=== PATIENT | male | born 1990 | race Caucasian/White ===

== ENCOUNTER 2022-09-09 03:11 | Emergency (ER) | payer SELFPAY ==
[2022-09-09] VITALS (66 sets, daily range): BP systolic 92–121; BP diastolic 53–70; PULSE 86–122; RESP 5–24; TEMP 35.7–36.5; O2SAT 85–100; BMI 22.4
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
--- NOTE | 2022-09-09 03:24 | DI.CT.S_ITS ---
PROCEDURE: CT HEAD/BRAIN WO CON INDICATIONS: right arm weak, right hip pain, +cocaine, metha TECHNIQUE: Noncontrast 4.5 mm thick angled axial sections acquired from the foramen magnum to the vertex, with coronal and sagittal reformats. For radiation dose reduction, the following was used: automated exposure control, adjustment of mA and/or kV according to patient size. COMPARISON: None. FINDINGS: Image quality: Excellent. CSF spaces: Basal cisterns are patent. No extra-axial fluid collections. Ventricles are normal in size and shape. Brain: No midline shift. No intracranial masses or hemorrhage. [place]-white matter interface is normal. Skull and face: Calvarium and visualized facial bones are intact, without suspicious lesions. Sinuses: Visualized sinuses and mastoids are clear. IMPRESSION: CT head without acute intracranial abnormalities. No mass or mass effect visualized. No significant discrepancy with the [facility] shift lead radiology preliminary report. Dictated by: Rob Walker M.D. on 09/09/2022 at 7:22 Approved by: Rob Walker M.D. on 09/09/2022 at 7:23
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
--- NOTE | 2022-09-09 03:26 | DI.RAD.S_ITS ---
PROCEDURE: XR SHOULDER RT MIN 2V INDICATIONS: weak right arm, TECHNIQUE: 2 views of the shoulder were acquired. COMPARISON: None. FINDINGS: Bones: No fractures or dislocations. No suspicious bony lesions. Visualized ribs appear intact. Soft tissues: No suspicious soft tissue calcifications. IMPRESSION: Right shoulder without acute fracture or dislocation. If there are persistent symptoms or clinical suspicion for pathology, then repeat radiographs or advanced imaging (CT or MRI) may be considered for further evaluation. No significant discrepancy with the retail shift manager radiology preliminary report. Dictated by: Rob Walker M.D. on 09/09/2022 at 7:21 Approved by: Rob Walker M.D. on 09/09/2022 at 7:22
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
[2022-09-09 03:56] LABS: Add Manual Diff / Slide Review YES; Hematocrit 48.2 % (41-53); Hemoglobin 16.2 g/dL (13.5-17.5); Mean Corpuscular HGB Conc 33.6 % (30-36); Mean Corpuscular Hemoglobin 28.7 PG (26-34); Mean Corpuscular Volume 85.3 fL (80-100); Platelet Count 351 X10^3/uL (150-400); Red Blood Cell Count 5.65 X10^6/uL (4.5-5.9); Red Cell Distribution Width 13.6 % (11.6-14.8); White Blood Cell Count 27.4 X10^3/uL (4.5-11.0)
[2022-09-09 04:03] LABS: Alanine Aminotransferase 370 IU/L (<50); Albumin 4.6 g/dL (3.5-5.0); Albumin Globulin Ratio 1.5 (1.0-2.8); Alkaline Phosphatase 103 U/L (38-126); Aspartate Aminotransferase 418 IU/L (17-59); BUN Creatinine Ratio 11.4 (6-22); Bilirubin Total 0.4 mg/dL (0.2-1.3); Blood Urea Nitrogen 23 mg/dL (9-20); Calcium 8.5 mg/dL (8.4-10.2); Carbon Dioxide 23 mmol/L (22-32); Chloride 105 mmol/L (98-107); Estimated Glomerular Filt Rate 45 mL/min (>60); Ethanol (ETOH) < 10 mg/dL; Globulin 3.1 g/dL (1.7-4.1); Glucose 118 mg/dL (70-100); HEMOLYSIS 24 (0-50); Sodium 141 mmol/L (137-145); Total Protein 7.7 g/dL (6.3-8.2)
[2022-09-09 04:06] LABS: Lactate (Lactic Acid) 4.6 mmol/L (0.7-2.1); Potassium 6.1 mmol/L (3.4-5.1)
[2022-09-09 04:14] LABS: Troponin I 0.076 ng/mL (0.01-0.034)
--- NOTE | 2022-09-09 04:18 | DI.RAD.S_ITS ---
PROCEDURE: XR CHEST 1V INDICATIONS: hypoxia TECHNIQUE: One view of the chest was acquired. COMPARISON: [facility], , CHEST 2 VIEW, 01/09/2009, 15:35. FINDINGS: Surgical changes and devices: None. Lungs and pleura: There is interstitial prominence. No focal consolidation. No pleural effusions or pneumothorax. Mediastinum: Mediastinal contours appear normal. Heart size is normal. Bones and chest wall: No suspicious bony lesions. Overlying soft tissues appear unremarkable. IMPRESSION: No acute cardiopulmonary disease. No significant discrepancy with the human resources leader radiology preliminary report. Dictated by: Mckayla Caraballo M.D. on 09/09/2022 at 8:03 Approved by: Mckayla Caraballo M.D. on 09/09/2022 at 8:04
[2022-09-09 04:24] LABS: Creatine Kinase 8036 U/L (55-170)
[2022-09-09] MEDS: ONDANSETRON 4 MG/2 ML INJ (04:39)
[2022-09-09 04:40] LABS: CKMB % Relative Index 0.4 % (1.5-5.0)
[2022-09-09 04:41] LABS: Procalcitonin 4.25 ng/mL (<0.5)
[2022-09-09] MEDS: SODIUM CHLORIDE 0.9% 2,000 ML 2000 ML IV (04:46)
[2022-09-09] MEDS: DEXTROSE 50 % IN WATER 25 GM/50 ML SYRINGE IV (04:53)
[2022-09-09] MEDS: INSULIN REGULAR 100 UNIT/ML 3 ML VIAL IV (05:20)
[2022-09-09 05:22] LABS: INR 1.1 (0.9-1.3); Prothrombin Time 12.7 SECONDS (10.1-12.7)
[2022-09-09 05:25] LABS: PTT Partial Thromboplastin Tim 27 SECONDS (26-36)
[2022-09-09] MEDS: SODIUM BICARB 8.4% SYRINGE 50 MEQ IV (05:26)
[2022-09-09] MEDS: CALCIUM GLUCONATE 4.65 MEQ in SODIUM CHLORIDE 0.9% 50 ML 180 MEQ IV (05:27)
[2022-09-09] MEDS: PIPERACILLIN/TAZO 4.5 GM in SODIUM CHLORIDE 0.9% 100 ML IV (05:30)
[2022-09-09 05:32] LABS: D Dimer 3858 ng/ml (<500)
[2022-09-09] MEDS: SODIUM CHLORIDE 0.9% 1,000 ML 1000 ML IV (05:35)
--- NOTE | 2022-09-09 05:43 | DI.CT.S_ITS ---
PROCEDURE: CT CERVICAL SPINE WO CON INDICATIONS: right arm weak TECHNIQUE: Noncontrast 3 mm thick sections acquired from the skull base to the T4 level. Sagittal and coronal reformats were then constructed. For radiation dose reduction, the following was used: automated exposure control, adjustment of mA and/or kV according to patient size. COMPARISON: CR, CERVICAL SPINE 2 OR 3 VIEWS, 07/17/2010, 4:04. [facility], CT, CT ANGIO CHEST PE PROTOCOL, 09/09/2022, 5:51. [facility], CR, XR CHEST 1V, 09/09/2022, 4:55. FINDINGS: Image quality: Excellent. Bones: Loss of cervical lordosis. No fractures or dislocations. Visualized superior ribs are intact. Soft tissues: Prevertebral soft tissues are normal in thickness. No paravertebral hematomas. No apical pneumothoraces. Ground-glass opacities at lung apices bilaterally. Please see separate CT chest angiogram report. IMPRESSION: No cervical spine injuries. No significant discrepancy with the dye blender radiology preliminary report. Dictated by: Mckayla Caraballo M.D. on 09/09/2022 at 7:45 Approved by: Mckayla Caraballo M.D. on 09/09/2022 at 7:48
--- NOTE | 2022-09-09 05:43 | DI.CT.S_ITS ---
PROCEDURE: CT ANGIO CHEST PE PROTOCOL INDICATIONS: hypoxia TECHNIQUE: After the administration of intravenous contrast, 2 mm thick sections acquired from the pulmonary apices to the posterior costophrenic angles. 3-dimensional maximum intensity projection (MIP) coronal and sagittal reformats were then acquired through the thorax. For radiation dose reduction, the following was used: automated exposure control, adjustment of mA and/or kV according to patient size. COMPARISON: , CR, XR CHEST 1V, 09/09/2022, 4:55. FINDINGS: Image quality: Excellent. Pulmonary arteries: Pulmonary arteries are normal in size. There are filling defects involving the left upper lobe segmental and subsegmental artery consistent with pulmonary emboli intraluminal filling defects to suggest central pulmonary embolism. Lungs and pleura: Bilateral ground-glass infiltrates. No pleural effusions or pneumothorax. Central and peripheral airways are patent. Mediastinum: Heart size is normal, without pericardial effusion. There is a 1.6 x 3.6 cm soft tissue density in the anterior mediastinum, probably thymic tissue. No mediastinal or hilar adenopathy. Thoracic aorta is normal in caliber and enhancement. Esophagus is normal in caliber, without hiatal hernia. Bones and chest wall: No suspicious bony lesions. Ribs and thoracic spine appear intact throughout. Thyroid gland is normal. No axillary or supraclavicular adenopathy. Abdomen: Visualized upper abdominal solid organs appear normal in the early arterial phase of enhancement. IMPRESSION: 1. There are pulmonary emboli involving the left upper lobe segmental artery and subsegmental arteries. 2. Bilateral patchy ground-glass infiltrates compatible with pneumonia. 3. There is a 1.6 x 3.6 cm soft tissue density in anterior mediastinum, probably thymic tissue. This may be secondary to thymic hyperplasia or a thymoma. Consider follow-up CT in 3 months. No significant discrepancy with the weight shifter radiology preliminary report. Dictated by: Mckayla Caraballo M.D. on 09/09/2022 at 8:01 Approved by: Mckayla Caraballo M.D. on 09/09/2022 at 8:58
[2022-09-09 05:47] LABS: Reflexed Lactate in 2 Hours Y
[2022-09-09 06:20] LABS: Lactate 2HR (Lactic Acid Rflx) 1.8 mmol/L (0.7-2.1)
[2022-09-09 06:21] LABS: Alanine Aminotransferase 255 IU/L (<50); Albumin Globulin Ratio 1.3 (1.0-2.8); Alkaline Phosphatase 69 U/L (38-126); Aspartate Aminotransferase 330 IU/L (17-59); BUN Creatinine Ratio 14.6 (6-22); Bilirubin Total 0.3 mg/dL (0.2-1.3); Blood Urea Nitrogen 23 mg/dL (9-20); Carbon Dioxide 27 mmol/L (22-32); Chloride 110 mmol/L (98-107); Estimated Glomerular Filt Rate > 60 mL/min (>60); Globulin 2.4 g/dL (1.7-4.1); Glucose 113 mg/dL (70-100); HEMOLYSIS 21 (0-50); Potassium 4.7 mmol/L (3.4-5.1); Sodium 141 mmol/L (137-145); Total Protein 5.4 g/dL (6.3-8.2)
[2022-09-09 06:32] LABS: Troponin I 0.091 ng/mL (0.01-0.034)
[2022-09-09 06:51] LABS: Creatine Kinase 9690 U/L (55-170)
--- NOTE | 2022-09-09 07:28 | DI.ECHO.S_ITS ---
[facility] +---------+ : : [address] : [place] [address] : : : : [id number] : : : : Phone: [phone]+ Echocardiogram Report + + :Name: BRIAN DAVIES Study Date: 09/09/2022 Height: 74 in : :[facility] ReadingLocation: Weight: 175 lb: : Gender: Male BSA: 2.1 m2 : :: 1990 Age: 32 yrs BP: 95/56 mmHg: :Reason For Study: PULMONARY EMBOLISM : :Ordering Physician: MIHIR ZAMORA Performed By: LORELEI DUNBAR : :Referring: MIHIR ZAMORA : + + Interpretation Summary Sinus tachycardia with HR around 110 bpm. Normal LV size and wall thickness. Global hypokinesis. Ejection fraction estimated at 40-45%. No significant valvular abnormalities. Normal chamber sizes. Specifically, RV is not dilated. Unable to estimate PA systolic pressure due to lack of significant TR jet. No prior study available for comparison. Procedure: A two-dimensional transthoracic echocardiogram with color flow and Doppler was performed. The study quality was technically adequate. There is no prior echocardiogram noted for this patient. The patient was in a tachycardic rhythm during the exam. Left Ventricle: The left ventricle is normal in size and wall thickness. Left ventricular systolic function is mild to moderately reduced. The ejection fraction is estimated to be 40-45%. Right Ventricle: The right ventricle is normal in size and function. Atria: Both atria are normal in size. There is no Doppler evidence for an interatrial shunt. Mitral Valve: The mitral valve is normal in structure and function. There is no mitral regurgitation noted. Aortic Valve: The aortic valve is trileaflet. The aortic valve opens well. There is no aortic valve stenosis. No aortic regurgitation is present. Tricuspid Valve: The tricuspid valve is normal in structure and function. There is trace tricuspid regurgitation. Pulmonary artery pressures cannot be estimated because of the lack of a measurable TR jet velocity. Pulmonic Valve: The pulmonic valve leaflets are thin and pliable; valve motion is normal. There is mild to moderate pulmonic regurgitation. Great Vessels: The aortic root is normal size. The ascending aorta is normal in size. The IVC is of normal diameter and collapses less than 50% with a sniff. This suggests a right atrial pressure of 8 mm Hg. Pericardium/ Pleura There is no pericardial effusion. There is no pleural effusion. MMode/2D Measurements & Calculations LVIDd: 4.1 cm LVOT diam: 2.1 cm LVIDs: 3.2 cm Ao root diam: 3.1 cm FS: 22.2 % asc Aorta Diam: 2.8 cm EPSS: 2.0 cm IVSd: 0.86 cm LVPWd: 0.89 cm LV chicas. diameter/BSA (cm/m^2): 2.0 LV sys. diameter/BSA (cm/m^2): 1.5 LA A2 area: 13.2 cm2 RA long axis: 3.9 cm LA A4 area: 13.5 cm2 RA area: 12.0 cm2 LA length (vol): 4.3 cm RA vol: 31.6 ml LA vol: 35.4 ml RA : 15.4 ml/m2 LA vol index: 17.2 ml/m2 TAPSE: 1.7 cm Doppler Measurements & Calculations Ao V2 max: 109.2 cm/sec LVOT Max Camron: 92.4 cm/sec Ao V2 mean: 81.5 cm/sec LV V1 max P.4 mmHg Ao max P.8 mmHg LV V1 VTI: 13.3 cm Ao mean P.8 mmHg MELVINA(I,D): 3.2 cm2 Ao V2 VTI: 14.9 cm MELVINA(V,D): 3.0 cm2 sev ratio: 0.89 MELVINA indexed to BSA (cm^2/m^2): 1.6 MV E max camron: 48.1 cm/sec PA V2 max: 82.0 cm/sec MV A max camron: 64.0 cm/sec PA V2 mean: 54.0 cm/sec MV E/A: 0.75 PA mean P.4 mmHg Med Peak E' Camron: 10.6 cm/sec PA pr(Accel): 39.6 mmHg E/E' med: 4.5 Lat Peak E' Camron: 7.9 cm/sec E/E' lat: 6.1 E/e' average: 5.3 MV dec time: 0.15 sec SV(LVOT): 47.5 ml Electronically signed by: Mary Morgan M.D. on Reading Physician:09/09/2022 11:20 AM
[2022-09-09 07:44] LABS: Neutrophils Absolute Manual 24112 /uL (3000-5900); RBC Morphology Normal Morphology; Total Cells Counted 100
--- NOTE | 2022-09-09 08:04 | PC.NURSE ---
pt states he does not want to start heparin until he talks to
[2022-09-09] MEDS: HEPARIN 5,000 UNIT/ML VIAL 6400 UNIT IV (08:10)
[2022-09-09] MEDS: HEPARIN DRIP 25,000 UNIT/500 ML IV.SOLN 20 UNIT IV (08:11)
[2022-09-09] MEDS: VANCOMYCIN 1,500 MG/300 ML PIGGYBACK 200 MG IV (08:22)
[2022-09-09 08:39] LABS: Troponin I 0.128 ng/mL (0.01-0.034)
[2022-09-09 08:42] LABS: Ur Creatinine Normal (Normal); Ur Specific Gravity Normal (Normal); Urine pH Normal (Normal)
[2022-09-09 08:46] LABS: Urine Cocaine Positive (Negative); Urine Tetrahydrocannabinol Negative (Negative)
[2022-09-09 08:47] LABS: UR Morphine/Opiate cutoff 300 Negative (Negative); Urine Amphetamines Negative (Negative); Urine Barbiturates Negative (Negative); Urine Benzodiazepines Negative (Negative); Urine MDMA Positive (Negative); Urine Methadone Negative (Negative); Urine Methamphetamines Positive (Negative); Urine Oxycodone Negative (Negative); Urine Phencyclidine Negative (Negative); Urine Tricyclic Antidepressant Negative (Negative)
[2022-09-09 09:50] LABS: Appearance Urine UA CLEAR; Bilirubin Urine UA NEGATIVE (NEGATIVE); Color Urine UA YELLOW; Glucose Urine UA NEGATIVE (Negative); Ketones Urine UA NEGATIVE (NEGATIVE); Leukocyte Esterase Urine UA NEGATIVE (NEGATIVE); Nitrite Urine UA NEGATIVE (Negative); Occult Blood Urine UA 3+ (Negative); Protein Urine UA 1+ (Negative); Specific Gravity Urine UA 1.015 (1.000-1.035)
--- NOTE | 2022-09-09 10:03 | PC.NURSE ---
report from osteologist is that patient came in after waking up and is unable to move his right arm and has no feeling in it. osteologist nurse reports he used painful stimuli on pt with no response on right but response on left arm was appropriate. pt admits to doing drugs and drinking but woke up this morning with pain in his shoulder/hip that he was laying on. pt found to be apneic but oxygen levels respond well to deep breathing, he is on 5L NC. pt currently states he is feeling more sensations in his right arm but is not mentally ready to move it yet.
[2022-09-09 10:08] LABS: Bacteria Urine None Seen; Culture Indicated Urine Cult Not Indicated; Granular Casts Urine 1-5/LPF; Hyaline Casts Urine 1-5/LPF; RBC Urine 1-5/HPF (0-5/HPF); Squamous Epithelial Cell Urine 1-5 /HPF (0-5/HPF); WBC Urine 0-1/HPF (0-5/HPF)
[2022-09-09 10:13] LABS: COVID19 -Nasal RAPID Negative (Negative)
[2022-09-09] MEDS: PIPERACILLIN/TAZO 3.375 GM in SODIUM CHLORIDE 0.9% 100 ML IV ×2 (10:14→18:03)
[2022-09-09] MEDS: SODIUM CHLORIDE 0.9% 1,000 ML 150 ML IV (11:25)
--- NOTE | 2022-09-09 12:24 | PC.NURSE ---
oxygen via NC turned down to 3L. pt has been stats in the high 90s for over 60min with no reminders to deep breathe.
--- NOTE | 2022-09-09 13:11 | PC.NURSE ---
[facility] aware of pt.
[2022-09-09 14:29] LABS: Add Manual Diff / Slide Review NO; Basophils Absolute Auto 100 /uL (0-100); Basophils Percent Auto 0.6 % (0-2); Eosinophils Absolute Auto 0 /uL (0-450); Eosinophils Percent Auto 0.1 % (2-4); Hematocrit 41.6 % (41-53); Hemoglobin 13.6 g/dL (13.5-17.5); Lymphocytes Absolute Auto 3000 /uL (1100-4500); Lymphocytes Percent Auto 14.9 % (25-40); Mean Corpuscular HGB Conc 32.8 % (30-36); Mean Corpuscular Volume 85.3 fL (80-100); Monocytes Absolute Auto 1200 /uL (0-900); Monocytes Percent Auto 5.9 % (3-14); Neutrophils Absolute Auto 15700 /uL (1500-7000); Neutrophils Percent Auto 78.5 % (50-75); Platelet Count 271 X10^3/uL (150-400); Red Blood Cell Count 4.88 X10^6/uL (4.5-5.9); Red Cell Distribution Width 13.8 % (11.6-14.8)
[2022-09-09 14:42] LABS: BUN Creatinine Ratio 14.7 (6-22); Blood Urea Nitrogen 20 mg/dL (9-20); Calcium 7.5 mg/dL (8.4-10.2); Carbon Dioxide 28 mmol/L (22-32); Chloride 105 mmol/L (98-107); Estimated Glomerular Filt Rate > 60 mL/min (>60); Glucose 104 mg/dL (70-100); HEMOLYSIS < 15 (0-50); Potassium 4.1 mmol/L (3.4-5.1); Sodium 138 mmol/L (137-145)
[2022-09-09 14:54] LABS: Troponin I 0.113 ng/mL (0.01-0.034)
[2022-09-09 14:56] LABS: PTT Partial Thromboplastin Tim 141 SECONDS (26-36)
[2022-09-09 15:11] LABS: Creatine Kinase 19213 U/L (55-170)
[2022-09-09 15:31] LABS: CKMB % Relative Index 0.5 % (1.5-5.0)
--- NOTE | 2022-09-09 17:16 | PC.NURSE ---
Addendum entered by Solange Haley R.N. 09/09/22 17:24: on troponin being elevated, and what rhabdo is and the worries it presents to his kidneys. told pt we are taking care of him and making sure he does not get worse but he is not advised to leave at this time. we plan on having him for a couple of days before he can go home. also spoke with provider about pt being hungry, dinner order ordered and called into kitchen Original Note: spoke to patient about the plan of getting him a room. spoke to patient about his blood clot in his lungs, re-educating
[2022-09-09] MEDS: LORazepam 2 MG/ML INJ 1 MG IV (18:03)
== END 2022-09-09 19:35 | disposition short-term general hospital (02) ==
PROVIDERS: Emergency Medicine; Emergency Provider Emergency Medicine
DX: I26.99 Other pulmonary embolism without acute cor pulmonale (principal); M62.82 Rhabdomyolysis; N17.9 Acute kidney failure, unspecified; E87.5 Hyperkalemia; A41.9 Sepsis, unspecified organism; M25.511 Pain in right shoulder; Z20.822 Contact with and (suspected) exposure to COVID-19
CPT/HCPCS: 36415; 51798; 70450; 70496; 70498; 71045; 71275; 72125; 73030; 73502; 80048; 80053; 80305; 80320; 81001; 81003; 82550; 82553; 83605; 84145; 84484; 85007; 85025; 85379; 85610; 85730; 87040; 87635; 93005; 93306; 96365; 96366; 96367; 96368; 96375; 99285; 99291; C9803; J0612; J1644; J2060; J2405; J2543; Q9967

== ENCOUNTER 2023-02-24 22:30 | Inpatient (IN) | payer OTHER, MEDICAID, SELFPAY ==
[2023-02-24 22:32] VITALS: BP 128/71; PULSE 114; RESP 16; TEMP 36.9; O2SAT 100; BMI 23.1
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
--- NOTE | 2023-02-24 22:51 | DI.RAD.S_ITS ---
PROCEDURE: XR TIBIA FIBULA LT 2V INDICATIONS: swelling, calf pain, hx of blood clots TECHNIQUE: 2 views of the tibia and fibula were acquired. COMPARISON: None. FINDINGS: Bones: No fractures or dislocations. No suspicious bony lesions. Soft tissues: No suspicious soft tissue calcifications. IMPRESSION: No acute osseous abnormality. If symptoms persist, follow-up radiographs and/or CT or MRI may be helpful for further evaluation. Dictated by: John Cordova M.D. on 02/24/2023 at 23:53 Approved by: John Cordova M.D. on 02/24/2023 at 23:54
--- NOTE | 2023-02-24 22:51 | DI.US.S_ITS ---
PROCEDURE: US PERIPH VENOUS LOW EXTREM LT INDICATIONS: swelling, calf pain, hx of blood clots TECHNIQUE: Real-time imaging, as well as color and pulse Doppler interrogation, were performed of the lower extremity deep veins from the inguinal ligament to the popliteal fossa, with documentation of the visualized calf veins. COMPARISON: None. FINDINGS: The common femoral, femoral, popliteal, and the visualized calf veins are normally compressible, and free of intraluminal thrombus. Color and pulse Doppler demonstrate normal phasic intraluminal flow. There is normal augmentation response to distal compression maneuver. Incidental note of prominent left inguinal lymph nodes which are likely reactive in etiology. IMPRESSION: No findings of lower extremity deep venous thrombosis. Dictated by: Rob Walker M.D. on 02/24/2023 at 23:39 Approved by: Rob Walker M.D. on 02/24/2023 at 23:40
[2023-02-24 23:05] VITALS: PULSE 112
[2023-02-25] VITALS (20 sets, daily range): BP systolic 105–130; BP diastolic 44–69; PULSE 96–139; RESP 17–27; TEMP 36.5–39.4; O2SAT 96–100; BMI 23.1
[2023-02-25] MEDS: KETOROLAC 30 MG/ML VIAL 15 MG IV (02:10)
[2023-02-25 02:11] LABS: Add Manual Diff / Slide Review NO; Basophils Absolute Auto 100 /uL (0-100); Basophils Percent Auto 0.5 % (0-2); Eosinophils Absolute Auto 0 /uL (0-450); Eosinophils Percent Auto 0.2 % (2-4); Hematocrit 36.4 % (41-53); Hemoglobin 12.1 g/dL (13.5-17.5); Lymphocytes Absolute Auto 900 /uL (1100-4500); Lymphocytes Percent Auto 4.4 % (25-40); Mean Corpuscular HGB Conc 33.1 % (30-36); Mean Corpuscular Hemoglobin 27.8 PG (26-34); Monocytes Absolute Auto 900 /uL (0-900); Monocytes Percent Auto 4.4 % (3-14); Neutrophils Absolute Auto 17600 /uL (1500-7000); Neutrophils Percent Auto 90.5 % (50-75); Platelet Count 417 X10^3/uL (150-400); Red Blood Cell Count 4.34 X10^6/uL (4.5-5.9); Red Cell Distribution Width 13.8 % (11.6-14.8); White Blood Cell Count 19.4 X10^3/uL (4.5-11.0)
[2023-02-25] MEDS: VANCOMYCIN 1,500 MG/300 ML PIGGYBACK 200 MG IV (02:12)
[2023-02-25 02:18] LABS: Lactate (Lactic Acid) 1.3 mmol/L (0.7-2.1)
[2023-02-25 02:19] LABS: Alanine Aminotransferase 217 IU/L (<50); Albumin 3.8 g/dL (3.5-5.0); Albumin Globulin Ratio 0.8 (1.0-2.8); Alkaline Phosphatase 199 U/L (38-126); Aspartate Aminotransferase 197 IU/L (17-59); BUN Creatinine Ratio 14.1 (6-22); Bilirubin Total 0.6 mg/dL (0.2-1.3); Blood Urea Nitrogen 12 mg/dL (9-20); Calcium 9.4 mg/dL (8.4-10.2); Carbon Dioxide 28 mmol/L (22-32); Chloride 99 mmol/L (98-107); Creatine Kinase 46 U/L (55-170); Estimated Glomerular Filt Rate > 60 mL/min (>60); Globulin 4.7 g/dL (1.7-4.1); Glucose 129 mg/dL (70-100); HEMOLYSIS < 15 (0-50); Sodium 137 mmol/L (137-145); Total Protein 8.5 g/dL (6.3-8.2)
[2023-02-25 02:31] LABS: Troponin I < 0.012 ng/mL (0.01-0.034)
[2023-02-25 02:36] LABS: Procalcitonin 0.13 ng/mL (<0.5)
[2023-02-25] MEDS: ACETAMINOPHEN 325 MG TABLET 975 MG PO (02:57)
[2023-02-25] MEDS: SODIUM CHLORIDE 0.45% 1,000 ML 100 ML IV ×2 (04:59→15:28)
[2023-02-25] MEDS: IBUPROFEN 600 MG TABLET PO ×3 (05:53→23:01)
[2023-02-25 06:02] LABS: Add Manual Diff / Slide Review NO; Basophils Absolute Auto 100 /uL (0-100); Basophils Percent Auto 0.4 % (0-2); Eosinophils Absolute Auto 0 /uL (0-450); Eosinophils Percent Auto 0.2 % (2-4); Hematocrit 34.6 % (41-53); Hemoglobin 11.6 g/dL (13.5-17.5); Lymphocytes Absolute Auto 800 /uL (1100-4500); Mean Corpuscular HGB Conc 33.5 % (30-36); Mean Corpuscular Hemoglobin 28.1 PG (26-34); Mean Corpuscular Volume 83.8 fL (80-100); Monocytes Absolute Auto 800 /uL (0-900); Monocytes Percent Auto 4.1 % (3-14); Neutrophils Absolute Auto 18400 /uL (1500-7000); Neutrophils Percent Auto 91.3 % (50-75); Platelet Count 371 X10^3/uL (150-400); Red Blood Cell Count 4.13 X10^6/uL (4.5-5.9); Red Cell Distribution Width 13.7 % (11.6-14.8); White Blood Cell Count 20.2 X10^3/uL (4.5-11.0)
[2023-02-25 06:18] LABS: Alanine Aminotransferase 451 IU/L (<50); Albumin 3.1 g/dL (3.5-5.0); Albumin Globulin Ratio 0.8 (1.0-2.8); Alkaline Phosphatase 302 U/L (38-126); Aspartate Aminotransferase 589 IU/L (17-59); Bilirubin Total 0.6 mg/dL (0.2-1.3); Blood Urea Nitrogen 13 mg/dL (9-20); Calcium 8.5 mg/dL (8.4-10.2); Carbon Dioxide 27 mmol/L (22-32); Chloride 100 mmol/L (98-107); Estimated Glomerular Filt Rate > 60 mL/min (>60); Globulin 4.1 g/dL (1.7-4.1); Glucose 126 mg/dL (70-100); HEMOLYSIS < 15 (0-50); Potassium 3.4 mmol/L (3.4-5.1); Sodium 135 mmol/L (137-145); Total Protein 7.2 g/dL (6.3-8.2)
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
[2023-02-25 06:20] LABS: Hemoglobin A1C% w Est Avg Glu 5.9 % (4.0-6.0)
--- NOTE | 2023-02-25 08:04 | P.PN_ITS ---
Subjective Subjective Interval history: He is somewhat distant, keeping his eyes closed and reluctantly engaging. His laboratory testing includes a white blood count of 20.2 with a hemoglobin of 11.6 and a potassium of 3.4. His AST is 589 with an ALT of 451 an alk-phos of 302. Those labs will be repeated tomorrow. His blood sugars have been in the 200s so we are considering increasing his Lantus dose. His heart rate has been 137 at times. The leg looks better today. Exam Vital Signs (past 8 hours): - 02/25/23 02:03 02/25/23 02:30 02/25/23 02:30 Temperature Pulse Rate 132 H 135 H Respiratory Rate 23 17 Blood Pressure 115/56 L Pulse Oximetry 100 99 Oxygen Delivery Method Oxygen Flow Rate 02/25/23 02:40 02/25/23 02:50 02/25/23 02:57 Temperature 103 F H 102.9 F H 102.9 F H Pulse Rate Respiratory Rate Blood Pressure Pulse Oximetry Oxygen Delivery Method Oxygen Flow Rate 02/25/23 03:00 02/25/23 03:00 02/25/23 03:15 Temperature 103 F H Pulse Rate 136 H Respiratory Rate 24 Blood Pressure 115/58 L Pulse Oximetry 97 Oxygen Delivery Method Oxygen Flow Rate 02/25/23 03:30 02/25/23 03:30 02/25/23 04:00 Temperature 103 F H Pulse Rate 139 H Respiratory Rate 22 Blood Pressure 121/65 118/56 L Pulse Oximetry 98 Oxygen Delivery Method Oxygen Flow Rate 02/25/23 04:00 02/25/23 04:30 02/25/23 04:30 Temperature Pulse Rate 133 H 136 H Respiratory Rate 27 H 27 H Blood Pressure 130/64 Pulse Oximetry 98 Oxygen Delivery Method Oxygen Flow Rate 02/25/23 04:51 02/25/23 05:04 02/25/23 05:10 Temperature 103 F H 100.8 F H Pulse Rate 137 H Respiratory Rate 18 Blood Pressure 112/51 L Pulse Oximetry 97 97 Oxygen Delivery Method Room Air Oxygen Flow Rate 0 02/25/23 07:57 Temperature 99.2 F Pulse Rate Respiratory Rate Blood Pressure Pulse Oximetry Oxygen Delivery Method Oxygen Flow Rate Oxygen Delivery Method Room Air Oxygen Flow Rate 0 Narrative Exam Narrative: Distant, reluctantly engaging, keeping his eyes closed. Left leg 2+ edema warm and with areas of pinkness. There is also some areas of tenderness up to the knee. Heart is regular rate and rhythm without murmur Lungs are clear to auscultation bilaterally Objective Labs 02/25/23 05:45 02/25/23 05:45 Labs: Laboratory Results - last 24 hr 02/25/23 02/25/23 01:50 05:45 WBC 19.4 H 20.2 H RBC 4.34 L 4.13 L Hgb 12.1 L 11.6 L Hct 36.4 L 34.6 L MCV 84.0 83.8 MCH 27.8 28.1 MCHC 33.1 33.5 RDW 13.8 13.7 Plt Count 417 H 371 Neut % (Auto) 90.5 H 91.3 H Lymph % (Auto) 4.4 L 4.0 L [place] % (Auto) 4.4 4.1 Eos % (Auto) 0.2 L 0.2 L Baso % (Auto) 0.5 0.4 Neut # (Auto) 58475 H 04708 H Lymph # (Auto) 900 L 800 L [place] # (Auto) 900 800 Eos # (Auto) 0 0 Baso # (Auto) 100 100 Sodium 137 135 L Potassium 4.0 3.4 Chloride 99 100 Carbon Dioxide 28 27 BUN 12 13 Creatinine 0.85 0.93 Estimated GFR > 60 > 60 BUN/Creatinine Ratio 14.1 14.0 Glucose 129 H 126 H Hemoglobin A1c 5.9 Lactate 1.3 Calcium 9.4 8.5 Total Bilirubin 0.6 0.6 AST 197 H 589 H ALT 217 H 451 H Alkaline Phosphatase 199 H 302 H D Total Creatine Kinase 46 L Troponin I < 0.012 Total Protein 8.5 H 7.2 Albumin 3.8 3.1 L Globulin 4.7 H 4.1 Albumin/Globulin Ratio 0.8 L 0.8 L Procalcitonin 0.13 PFSH Social History household members: none Smoking Status: Current every day smoker alcohol intake: former Assessment & Plan Assessment & Plan narrative: Cellulitis of left leg: Plan Continue Vancomycin. pain meds, tylenol and IV narcotics ordered, The pt has not been on oral antibiotics for this in the past, expect short hospitalization. US of the leg was negative for DVT, repeating CMP due to elevated LFT's, probably due to meth abuse. Elevated liver enzymes, present on admission. Active. -02/25/2023 AST 589, ALT 451, alk-phos 302 -follow closely, expect to steadily fall with treatment, likely related to methamphetamine? -consider liver imaging and hepatitis-C testing Methamphetamine abuse -patient is somewhat disengaged and does not appear comfortable. Quality VTE Deep Vein Thrombosis/Pulmonary Embolism Present on Admission: No
[2023-02-25] MEDS: VANCOMYCIN 1,250 MG/250 ML PIGGYBACK 250 MG IV ×2 (10:11→17:45)
[2023-02-25] MEDS: POTASSIUM CHLORIDE 20 MEQ TAB 40 MEQ PO (10:11)
--- NOTE | 2023-02-25 13:55 | CM.DANOTE ---
Reviewed EMR and team rounds for medical status and anticipated d/c needs. ANATOMY AND PHYSIOLOGY INSTRUCTOR attempted several times to meet w/him for this assessment, however he was deeply sleeping and difficult to rouse. Observed RN also trying to engage w/him, he was accepting of some meds but indicated he did not want to interact w/staff, appeared adamantly against the Lovenox injection, but was open to oral potassium. Payor: None PCP: None Pt is a 32 year-old M who presented to ED after having worsening pain and swelling of his left lower extremity. He is homeless, has a hx of daily methamphetamine use (smoking, not injecting), and had a prior pulmonary emboli about a month ago, left AMA but did take about oral meds for about 30-days. He was admitted for left lower extremity cellulites, and was started on IV Vancomycin. US of leg was negative for PE, and is thought to be related to his methamphetamine use. This ANATOMY AND PHYSIOLOGY INSTRUCTOR did observe a friend visit him in the room, and his mother presented to the central nursing station inquiring about him. She stated if he knew I was here he would be angry. She is listed as a contact in the EMR, however no Auth to Discuss is on file. Per Hospitalist, his stay will most likely be short in inpt. DCP to follow and assist with evolving care plan and d/c needs. Discharge Planning/Care Management CM Discharge Assessment Start: 02/25/23 12:32 Freq: Status: Active Protocol: Document 02/25/23 13:31 DPL (Rec: 02/25/23 13:38 DPL [id number]) Discharge Planning Assessment Assigned Director Speech ROSA Orozco DPOA/Assigned Designee Name N/A Contact Information None. Pt does not want his mother involved, per RN. Advance Directives? No History Provided By Medical Record Expected Length of Stay 2 Has Patient been admitted in last 30 No days? Prior Living Arrangements Homeless Household Members none Comment Pt rides a bicycle. Independent with ADL's Yes Is patient alert and oriented? No: Pt found to be sleeping deeply on several attempts by this ANATOMY AND PHYSIOLOGY INSTRUCTOR to meet. Comment N/A Caregiver for Another No Comment N/A Comment N/A Comment Pt does not have insurance for OP therapies. Barriers to Discharge Yes Comment Homeless Discharge Plan Home Transportation Arrangement N/A Referrals Initiated None needed Whiteboard Updated in Patient Room with Yes name and ext. # of Director Speech Review Status In Process Please Provide Date Initial DC 02/25/23 Assessment Was Performed
[2023-02-26] MEDS: VANCOMYCIN 1,250 MG/250 ML PIGGYBACK 250 MG IV (01:54)
[2023-02-26 03:00] VITALS: BP 119/58; PULSE 115; RESP 16; TEMP 37; O2SAT 99
[2023-02-26] MEDS: IBUPROFEN 600 MG TABLET PO ×4 (05:07→23:51)
[2023-02-26 06:21] LABS: Add Manual Diff / Slide Review NO; Basophils Absolute Auto 0 /uL (0-100); Basophils Percent Auto 0.2 % (0-2); Eosinophils Absolute Auto 200 /uL (0-450); Hemoglobin 10.9 g/dL (13.5-17.5); Lymphocytes Absolute Auto 1300 /uL (1100-4500); Lymphocytes Percent Auto 5.5 % (25-40); Mean Corpuscular Hemoglobin 27.7 PG (26-34); Mean Corpuscular Volume 83.9 fL (80-100); Monocytes Absolute Auto 1300 /uL (0-900); Monocytes Percent Auto 5.3 % (3-14); Neutrophils Absolute Auto 20600 /uL (1500-7000); Platelet Count 360 X10^3/uL (150-400); Red Blood Cell Count 3.93 X10^6/uL (4.5-5.9); Red Cell Distribution Width 13.7 % (11.6-14.8); White Blood Cell Count 23.4 X10^3/uL (4.5-11.0)
[2023-02-26 06:25] LABS: Alanine Aminotransferase 275 IU/L (<50); Albumin 2.8 g/dL (3.5-5.0); Albumin Globulin Ratio 0.7 (1.0-2.8); Alkaline Phosphatase 281 U/L (38-126); Aspartate Aminotransferase 91 IU/L (17-59); BUN Creatinine Ratio 13.4 (6-22); Bilirubin Total 0.4 mg/dL (0.2-1.3); Blood Urea Nitrogen 9 mg/dL (9-20); Calcium 8.5 mg/dL (8.4-10.2); Carbon Dioxide 23 mmol/L (22-32); Chloride 104 mmol/L (98-107); Estimated Glomerular Filt Rate > 60 mL/min (>60); Globulin 3.9 g/dL (1.7-4.1); Glucose 187 mg/dL (70-100); HEMOLYSIS < 15 (0-50); Potassium 3.7 mmol/L (3.4-5.1); Sodium 135 mmol/L (137-145); Total Protein 6.7 g/dL (6.3-8.2)
[2023-02-26 07:00] VITALS: BP 113/67; PULSE 92; RESP 16; TEMP 36.2; O2SAT 99
[2023-02-26 10:02] LABS: Vancomycin Trough 7.5 ug/mL (10-20)
[2023-02-26 11:00] VITALS: BP 105/62; PULSE 105; RESP 16; TEMP 36.9; O2SAT 98
[2023-02-26] MEDS: VANCOMYCIN 1,500 MG/300 ML PIGGYBACK 200 MG IV ×2 (11:02→18:04)
[2023-02-26] MEDS: cefTRIAXone 2,000 MG in SODIUM CHLORIDE 0.9% 100 ML 200 MG IV (14:03)
[2023-02-26] MEDS: SODIUM CHLORIDE 0.45% 1,000 ML 100 ML IV (14:04)
[2023-02-26 15:00] VITALS: BP 118/59; PULSE 99; RESP 16; TEMP 36.8; O2SAT 98
--- NOTE | 2023-02-26 16:48 | CM.DPNOTE ---
DCP JEWEL INSPECTOR reviewed EMR. Per RN, patient refused CT today. Per provider, likely here for another three days. JEWEL INSPECTOR unable to meet with patient due to triaging needs. CM team will continue to follow closely to provide resources and additional d/c support when able. ROSA Petersen
--- NOTE | 2023-02-26 17:18 | P.PN_ITS ---
Subjective Subjective Interval history: WBC still elevated. CT leg ordered but patient refused. Rocephin added to vanc to expand coverage. Exam Vital Signs (past 8 hours): - 02/26/23 09:45 02/26/23 11:00 02/26/23 13:00 Temperature 98.4 F Pulse Rate 105 H Respiratory Rate 16 Blood Pressure 105/62 Pulse Oximetry 98 Oxygen Delivery Method Room Air Room Air Oxygen Flow Rate 0 02/26/23 15:00 Temperature 98.2 F Pulse Rate 99 H Respiratory Rate 16 Blood Pressure 118/59 L Pulse Oximetry 98 Oxygen Delivery Method Oxygen Flow Rate 0 Oxygen Delivery Method Room Air Oxygen Flow Rate 0 Narrative Exam Narrative: Distant, reluctantly engaging, keeping his eyes closed. Left leg 2+ edema warm and with areas of pinkness. There is also some areas of tenderness up to the knee. Heart is regular rate and rhythm without murmur Lungs are clear to auscultation bilaterally Objective Labs 02/26/23 05:35 02/26/23 05:35 Labs: Laboratory Results - last 24 hr 02/26/23 02/26/23 05:35 09:30 WBC 23.4 H RBC 3.93 L Hgb 10.9 L Hct 33.0 L MCV 83.9 MCH 27.7 MCHC 33.0 RDW 13.7 Plt Count 360 Neut % (Auto) 88.0 H Lymph % (Auto) 5.5 L [place] % (Auto) 5.3 Eos % (Auto) 1.0 L Baso % (Auto) 0.2 Neut # (Auto) 93221 H Lymph # (Auto) 1300 [place] # (Auto) 1300 H Eos # (Auto) 200 Baso # (Auto) 0 Sodium 135 L Potassium 3.7 Chloride 104 Carbon Dioxide 23 BUN 9 Creatinine 0.67 Estimated GFR > 60 BUN/Creatinine Ratio 13.4 Glucose 187 H Calcium 8.5 Total Bilirubin 0.4 AST 91 H ALT 275 H Alkaline Phosphatase 281 H Total Protein 6.7 Albumin 2.8 L Globulin 3.9 Albumin/Globulin Ratio 0.7 L Vancomycin Trough 7.5 L PFSH Social History household members: none Smoking Status: Current every day smoker alcohol intake: former Assessment & Plan Assessment & Plan narrative: Cellulitis of left leg: Plan Continue Vancomycin and Rocephin added. pain meds, tylenol and IV narcotics ordered, The pt has not been on oral antibiotics for this in the past, expect short hospitalization. US of the leg was negative for DVT, monitoring CMP due to elevated LFT's, probably due to meth abuse. Elevated liver enzymes, present on admission. Improving. -02/25/2023 AST 589, ALT 451, alk-phos 302 -follow closely, expect to steadily fall with treatment, likely related to methamphetamine? -f/up liver imaging and hepatitis-C testing Methamphetamine abuse -patient is somewhat disengaged and does not appear comfortable. Dispo: Home in 2-3 days pending improvement in cellulitis. Quality VTE Deep Vein Thrombosis/Pulmonary Embolism Present on Admission: No
--- NOTE | 2023-02-26 17:21 | DI.US.S_ITS ---
PROCEDURE: US ABDOMEN LIMITED INDICATIONS: ELEVATED LIVER FUNCTION TESTS. HISTORY OF DRUG ABUSE. TECHNIQUE: Real-time scanning was performed of the abdominal and retroperitoneal organs, with image documentation. COMPARISON: None. FINDINGS: Liver: Liver is enlarged. Normal echotexture. No focal mass lesion. Gallbladder: Gallbladder wall thickening measures 4.8 mm. Partial gallbladder contraction. No cholelithiasis or pericholecystic fluid Biliary ducts: Intrahepatic bile ducts are non-dilated. Extrahepatic bile duct caliber measures 2.9 mm. Normal is 6-7 mm or less in diameter, or 10 mm or less post-cholecystectomy. Pancreas: Visualized portions of the pancreas are sonographically normal. IMPRESSION: Gallbladder wall thickening without cholelithiasis. Differential would include nonfasting state with gallbladder contraction, and less likely acalculus cholecystitis. Approved by: Bright Rowe M.D. on 02/27/2023 at 13:39
[2023-02-26] MEDS: SENNOSIDES 8.6 MG TABLET 17.2 MG PO (19:50)
[2023-02-26 21:27] VITALS: BP 114/54; PULSE 92; RESP 18; TEMP 36.6; O2SAT 96
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
[2023-02-27] VITALS: BP 119/72; PULSE 102; RESP 18; TEMP 36.8; O2SAT 99
[2023-02-27] MEDS: VANCOMYCIN 1,500 MG/300 ML PIGGYBACK 200 MG IV ×2 (03:00→11:22)
[2023-02-27] MEDS: SODIUM CHLORIDE 0.45% 1,000 ML 100 ML IV ×2 (03:04→14:57)
[2023-02-27 04:00] VITALS: BP 122/62; PULSE 105; RESP 18; TEMP 37.4; O2SAT 99
[2023-02-27 06:10] LABS: Hematocrit 34.3 % (41-53); Hemoglobin 11.3 g/dL (13.5-17.5); Mean Corpuscular Hemoglobin 27.7 PG (26-34); Platelet Count 400 X10^3/uL (150-400); Red Blood Cell Count 4.09 X10^6/uL (4.5-5.9); Red Cell Distribution Width 13.8 % (11.6-14.8); White Blood Cell Count 26.1 X10^3/uL (4.5-11.0)
[2023-02-27 06:11] LABS: Add Manual Diff / Slide Review YES; Alanine Aminotransferase 189 IU/L (<50); Albumin 2.9 g/dL (3.5-5.0); Albumin Globulin Ratio 0.6 (1.0-2.8); Alkaline Phosphatase 344 U/L (38-126); Aspartate Aminotransferase 40 IU/L (17-59); BUN Creatinine Ratio 15.1 (6-22); Bilirubin Total 0.3 mg/dL (0.2-1.3); Blood Urea Nitrogen 11 mg/dL (9-20); Calcium 8.7 mg/dL (8.4-10.2); Carbon Dioxide 22 mmol/L (22-32); Chloride 104 mmol/L (98-107); Estimated Glomerular Filt Rate > 60 mL/min (>60); Globulin 4.5 g/dL (1.7-4.1); Glucose 128 mg/dL (70-100); HEMOLYSIS < 15 (0-50); Potassium 3.9 mmol/L (3.4-5.1); Sodium 135 mmol/L (137-145); Total Protein 7.4 g/dL (6.3-8.2)
[2023-02-27 06:45] LABS: Neutrophils Absolute Manual 22968 /uL (3000-5900); Total Cells Counted 100
[2023-02-27 06:46] LABS: RBC Morphology Normal Morphology
[2023-02-27 08:00] VITALS: BP 114/61; PULSE 106; RESP 18; TEMP 36.6; O2SAT 97
--- NOTE | 2023-02-27 09:29 | PC.NURSE ---
Patient is in good spirits this morning and denies pain. He had his ultrasound this morning on his liver and is now eating breakfast. Note left for Dr. Estes as patient is now interested in a wound culture and a possible CT. L.leg is swollen and red with some scabbed area's.
[2023-02-27 11:03] LABS: Vancomycin Trough 8.8 ug/mL (10-20)
[2023-02-27] MEDS: IBUPROFEN 600 MG TABLET PO ×2 (11:21→18:28)
[2023-02-27 12:00] VITALS: BP 131/73; PULSE 90; RESP 18; TEMP 36.7; O2SAT 99
[2023-02-27] MEDS: cefTRIAXone 2,000 MG in SODIUM CHLORIDE 0.9% 100 ML 200 MG IV (14:58)
--- NOTE | 2023-02-27 15:34 | CM.DPC ---
DCP Cont: Per MD, pt continues with IV-Abx and not yet medically stable to discharge yet today. Recommendation is CT scan and unclear if pt will be agreeable to scan today. Per AD Counselors, pt was able to be enrolled in [email or web address] today. RILEY met bedside with pt and his Aunt Brit [phone] and explained role and pt states he feels he does not have any safe and healthy environment to discharge to as pt states he wants to remain sober. Pt states that most of his family is not involved or willing to be supportive but his Aunt Brit just moved back to the area and supportive but does not have a place for pt to discharge to. Pt confirms he has no hx of ALEXANDRE tx but is somewhat interested at this time. SW discussed the [facility] Motel Voucher Program and provided the contact information for pt to call and he states he feels he would like a plan of d/c to motel for a week or two and likely can get funds from some family and friends to afford this and then would likely do Detox Facility. SW discussed local [facility] in [place], [facility], and [facility] and provided the brochures for each. SW discussed that Detox can help pt with ALEXANDRE tx at that time if he is agreeable. Pt has not been very mobile yet due to the swelling and pain in his leg and SW discussed for Detox and Motel Voucher Program he will need to be independent with ADLs and he acknowledges understanding and confirms he is independent at baseline and once pain managed and swelling reduced he does not anticipate he will have issues with mobility. Plan: SW to follow closely for plan of likely d/c to motel when medically stable and then provided Detox Facility information for pt to f/u on detox/possible ALEXANDRE tx after discharge. ROSA Baker
--- NOTE | 2023-02-27 17:30 | DI.CT.S_ITS ---
PROCEDURE: CT LE LT W CON INDICATIONS: infected leg, hx meth, wbc not improving TECHNIQUE: After the administration of intravenous contrast, 3 mm axial sections acquired of the left lower extremity , with coronal and sagittal reformats. COMPARISON: None. FINDINGS: Image quality: Excellent. Bones: The bones are intact. No osseous erosions. No acute fracture or dislocation. Soft tissues: There is diffuse soft tissue swelling and skin thickening throughout the left calf and left foot. No edema is seen within the deep or intramuscular spaces. IMPRESSION: Predominately subcutaneous edema and skin thickening throughout the calf and foot. Findings likely represent cellulitis given history of infection. No organized fluid collections are seen. No evidence of infection within the intramuscular or deep spaces. The osseous structures appear intact without evidence of osteomyelitis. Dictated by: Berto Stewart M.D. on 02/27/2023 at 19:49 Approved by: Berto Stewart M.D. on 02/27/2023 at 19:51
[2023-02-27] MEDS: VANCOMYCIN 1,250 MG/250 ML PIGGYBACK 250 MG IV ×2 (18:25→23:55)
[2023-02-27 19:00] VITALS: BP 125/67; PULSE 104; RESP 18; TEMP 36.2; O2SAT 97
[2023-02-27] MEDS: SENNOSIDES 8.6 MG TABLET 17.2 MG PO (20:14)
--- NOTE | 2023-02-27 20:32 | PM.PN.1 ---
Subjective Subjective Date Patient Seen: 02/27/23 Time Patient Seen: 08:00 Exam Vital Signs (past 8 hours): - 02/27/23 13:00 02/27/23 17:00 Oxygen Delivery Method Room Air Room Air Oxygen Delivery Method Room Air Oxygen Flow Rate 0 Narrative Exam Narrative: GEN: minimally responding and distant, does not appear to want to engage in exam, but easily arousable EXT: left leg with erythema and warmth and tenderness, which he states is improved from yesterday CV: regular rate and rhythm, no murmurs PULM: clear bilaterally Objective Labs 02/27/23 05:28 02/27/23 05:28 Labs: Laboratory Results - last 24 hr 02/27/23 02/27/23 05:28 10:30 WBC 26.1 H RBC 4.09 L Hgb 11.3 L Hct 34.3 L MCV 84.0 MCH 27.7 MCHC 33.0 RDW 13.8 Plt Count 400 Neut % (Auto) Not Reportable Lymph % (Auto) Not Reportable [place] % (Auto) Not Reportable Eos % (Auto) Not Reportable Baso % (Auto) Not Reportable Lymph # (Auto) Not Reportable [place] # (Auto) Not Reportable Baso # (Auto) Not Reportable Total Counted 100 Seg Neutrophils % 87.0 H Band Neutrophils % 1.0 L Lymphocytes % (Manual) 8.0 L Monocytes % (Manual) 4.0 Neutrophils # (Manual) 76139 H RBC Morphology Normal morphology Sodium 135 L Potassium 3.9 Chloride 104 Carbon Dioxide 22 BUN 11 Creatinine 0.73 Estimated GFR > 60 BUN/Creatinine Ratio 15.1 Glucose 128 H Calcium 8.7 Total Bilirubin 0.3 AST 40 ALT 189 H Alkaline Phosphatase 344 H Total Protein 7.4 Albumin 2.9 L Globulin 4.5 H Albumin/Globulin Ratio 0.6 L Vancomycin Trough 8.8 L PFSH Social History household members: none Smoking Status: Current every day smoker alcohol intake: former Assessment & Plan Assessment & Plan narrative: 1. Left leg cellulitis -continue vanco/ceftriaxone -wbc continutes to rise up to 26 on 02/27 -continue to treat in hospital until infection clearly improved -ordered ct leg to evaluate further and no fluid collection on imaging -us negative due to dvt 2. Elevated liver enzymes -suspect secondary to meth abuse -ultrasound of gallbladder not consistent with cholecystitis 3. Meth abuse -patient is minimally participating in exam and is distant affect Quality VTE Deep Vein Thrombosis/Pulmonary Embolism Present on Admission: No
--- NOTE | 2023-02-27 23:26 | PC.NURSE ---
Addendum entered by Meri Layton R.N. 02/28/23 05:47: Patient initially refusing lab draw this morning so RN talked with him and he stated it was because no one is telling him the results. Reminded him that previous night this RN had taken computer into room and went through MD progress notes as well as labs and US results. Stated he would allow lab to draw blood after I take a piss for the 40th time. Original Note: Patient is alert and oriented. Breath sounds CTA with RA sat of 97%. HRR. Denied nausea. BT present and reports having had BM yesterday. Is voiding per urinal with good UOP. Is able to turn himself in bed. When out of bed has now been using walker rather than crutches and is provided SBA for safety. Still with tenderness, edema, erythema and abrasions on left LE; edema has decreased since last night. States he still has numbness in left toes but has good cap refill and pedal pulses. Is keeping left LE elevated on pillows. Agreeable to having calf SCD placed on right LE at time of shift assessment. Denied pain. Fall risk score is high but declines to have bed alarm on and verbalizes agreement to call staff for assist when getting out of bed.
[2023-02-28 02:35] LABS: HBsAg Screen Negative (Negative); Hepatitis A Antibody IgM Negative (Negative); Hepatitis B Core Antibody IgM Negative (Negative); Hepatitis C Antibody Non Reactive (Non Reactive)
[2023-02-28 03:00] VITALS: BP 108/63; PULSE 94; RESP 18; TEMP 36.3; O2SAT 98
[2023-02-28 04:00] VITALS: O2SAT 98
[2023-02-28] MEDS: SODIUM CHLORIDE 0.45% 1,000 ML 100 ML IV (04:12)
[2023-02-28] MEDS: IBUPROFEN 600 MG TABLET PO (05:53)
[2023-02-28] MEDS: VANCOMYCIN 1,250 MG/250 ML PIGGYBACK 250 MG IV (06:01)
[2023-02-28 06:37] LABS: Hematocrit 35.2 % (41-53); Hemoglobin 11.6 g/dL (13.5-17.5); Mean Corpuscular HGB Conc 32.9 % (30-36); Mean Corpuscular Hemoglobin 27.3 PG (26-34); Mean Corpuscular Volume 82.9 fL (80-100); Platelet Count 449 X10^3/uL (150-400); Red Blood Cell Count 4.25 X10^6/uL (4.5-5.9); Red Cell Distribution Width 13.8 % (11.6-14.8); White Blood Cell Count 20.2 X10^3/uL (4.5-11.0)
[2023-02-28 06:41] LABS: Add Manual Diff / Slide Review YES
[2023-02-28 06:48] LABS: Alanine Aminotransferase 153 IU/L (<50); Albumin Globulin Ratio 0.6 (1.0-2.8); Alkaline Phosphatase 413 U/L (38-126); Aspartate Aminotransferase 58 IU/L (17-59); BUN Creatinine Ratio 16.4 (6-22); Bilirubin Total 0.3 mg/dL (0.2-1.3); Blood Urea Nitrogen 11 mg/dL (9-20); Calcium 8.9 mg/dL (8.4-10.2); Carbon Dioxide 22 mmol/L (22-32); Chloride 105 mmol/L (98-107); Estimated Glomerular Filt Rate > 60 mL/min (>60); Globulin 4.8 g/dL (1.7-4.1); Glucose 125 mg/dL (70-100); HEMOLYSIS < 15 (0-50); Potassium 4.1 mmol/L (3.4-5.1); Sodium 136 mmol/L (137-145); Total Protein 7.8 g/dL (6.3-8.2)
[2023-02-28 07:01] LABS: Neutrophils Absolute Manual 16968 /uL (3000-5900); Total Cells Counted 100
[2023-02-28 07:02] LABS: RBC Morphology Normal Morphology
[2023-02-28 08:00] VITALS: O2SAT 99
[2023-02-28 09:00] VITALS: BP 123/86; PULSE 80; RESP 16; TEMP 36.2; O2SAT 99
--- NOTE | 2023-02-28 11:43 | PC.NURSE ---
Pt is dressed and ready for discharge home with friend. Pt states he has already arranged a ride and will be staying in a hotel. Went over d/c instructions with Pt-discussed d/c meds, time of last dose, reviewed stroke education, establishing with PCP to follow up on cellulitis, taking his full regimen of abx as ordered, elevating his leg above his heart, and follow up. Pt denied further questions and was taken out via w/c to ER entrance to be picked up by his friend with all belongings.
--- NOTE | 2023-02-28 13:16 | CM.DPC ---
DCP Discharge Home Per MD pt medically stable to d/c home on PO meds today and outpt f/u. Per RN, pt is following through on the information that SW provided yesterday on [facility] and maybe detox facility after and discharge instructions provided to pt and then his friend arrived to provide transport via POV to local mot and no further concerns noted. ROSA Baker
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
== END 2023-02-28 11:47 | disposition home or self-care (01) | DRG 383 ==
LOC: ED 02-25 03:37 → AC 02-25 03:43
PROVIDERS: Family Medicine; Student in an Organized Health Care Education/Training Program; Admitting Provider Internal Medicine; Emergency Provider Emergency Medicine; Referring Provider Emergency Medicine; Visit Provider Internal Medicine
DX: L03.116 Cellulitis of left lower limb (principal); F15.10 Other stimulant abuse, uncomplicated; R74.01 Elevation of levels of liver transaminase levels
CPT/HCPCS: 36415; 73590; 73701; 76705; 80053; 80074; 80202; 81003; 82550; 83036; 83605; 84145; 84484; 85007; 85025; 87040; 93971; 99284; 99291; J0696; J1650; J1885; J7050; Q9967

== ENCOUNTER 2023-11-21 07:52 | Emergency (ER) | payer OTHER, MEDICAID, SELFPAY ==
[2023-02-25 05:04] VITALS: BMI 23.1
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
[2023-11-21 07:55] VITALS: BP 144/81; PULSE 93; RESP 18; TEMP 36.5; O2SAT 100; BMI 23.7
== END 2023-11-21 08:02 | disposition home or self-care (01) ==
LOC: ED 08:13
PROVIDERS: Emergency Provider Emergency Medicine
DX: L03.116 Cellulitis of left lower limb (principal); Z00.8 Encounter for other general examination
CPT/HCPCS: 99281